=== PATIENT | female | born 1965 | race Hispanic/Latino ===

== ENCOUNTER 2018-03-23 14:46 | Outpatient (CLI) | payer BC | END 2018-03-23 14:47 | disposition home or self-care (01) | LOC: BICMAMMO 14:46 | PROVIDERS: ATTEND Nurse Practitioner Family | DX: Z12.31 Encounter for screening mammogram for malignant neoplasm of breast (principal) | CPT/HCPCS: 77063; 77067 ==

== ENCOUNTER 2019-05-11 15:36 | Outpatient (CLI) | payer BC ==
--- NOTE | 2019-05-11 16:28 | MMO ---
Bilateral MAMMO Bilat Screen [facility]. CLINICAL HISTORY: Patient is 54 years old and is seen for screening. The patient has no family history of breast cancer. The patient has no personal history of cancer. VIEWS: The views performed were: bilateral craniocaudal with tomosynthesis and bilateral mediolateral oblique with tomosynthesis. FILMS COMPARED: The present examination has been compared to prior imaging studies performed at [facility] on 12/22/2013, 12/30/2014, 01/03/2016 and 03/23/2018. This study has been interpreted with the assistance of computer-aided detection. MAMMOGRAM FINDINGS: There are scattered fibroglandular densities. There are stable benign appearing calcifications seen in both breasts. There are no suspicious masses, calcifications or areas of architectural distortion. There are no suspicious masses, suspicious calcifications, or new areas of architectural distortion. IMPRESSION: THERE IS NO MAMMOGRAPHIC EVIDENCE OF MALIGNANCY. A ROUTINE FOLLOW-UP MAMMOGRAM IN 1 YEAR IS RECOMMENDED. THE RESULTS OF THIS EXAM WERE SENT TO THE PATIENT. ACR BI-RADS Category 2 - Benign finding MAMMOGRAPHY NOTE: 1. A negative mammogram report should not delay a biopsy if a dominant of clinically suspicious mass is present. 2. Approximately 10% to 15% of breast cancers are not detected by mammography. 3. Adenosis and dense breasts may obscure an underlying neoplasm. Reported by: LISA SWANN MD Electonically Signed: [id number]
== END 2019-05-11 15:37 | disposition home or self-care (01) ==
LOC: BICMAMMO 15:36
PROVIDERS: ATTEND Nurse Practitioner Family
DX: Z12.31 Encounter for screening mammogram for malignant neoplasm of breast (principal)
CPT/HCPCS: 77063; 77067

== ENCOUNTER 2019-05-25 09:30 | Outpatient (CLI) | payer BC ==
--- NOTE | 2019-05-25 11:58 | MRI ---
MRI RIGHT HINDFOOT AND MIDFOOT WITH AND WITHOUT IV CONTRAST: Date: 05/25/19 PROVIDED CLINICAL HISTORY: Lateral right midfoot masses. FINDINGS: Areas of palpable concern at the lateral aspect of the midfoot adjacent to the cuboid and lateral for efoot/midfoot junction are marked at the skin by the technologist with vitamin E capsules. There is no mass like signal alteration within the subcutaneous adipose layer, musculature, or osseou s structures in the regions of palpable concern. The anterior extensor, medial flexor, peroneal, and Achilles tendons demonstrate an intact MR appeara nce. The medial and lateral ankle ligaments appear intact. Alignment appears anatomic. Joint spaces a ppear preserved. No regional joint effusion is evident. Plantar calcaneal enthesophyte formation is seen without signal alteration involving the adjacent zhanna caneus or plantar aponeurosis. There is preservation of the normal fat signal intensity within the ta rsal sinus. Degenerative changes are noted at the calcaneal-cuboid joints. Regional marrow signal josh ears otherwise unremarkable. The courses of the regional major neurovascular structures appear unremarkable. IMPRESSION: No signal alteration or mass is evident in the regions of palpable concern to account for the palpabl e findings. POS: OFF
[2019-05-25] MEDS ORDERED: Magnevist 469MG/ML 20 ML VIAL ONE (13:34)
== END 2019-05-25 09:31 | disposition home or self-care (01) ==
LOC: BICMRI 09:30
PROVIDERS: ATTEND Podiatrist
DX: M67.471 Ganglion, right ankle and foot (principal)
CPT/HCPCS: A9579

== ENCOUNTER 2020-05-16 13:28 | Outpatient (CLI) | payer OTHER ==
--- NOTE | 2020-05-16 14:37 | MMO ---
Bilateral MAMMO Bilat Screen [facility]. CLINICAL HISTORY: Patient is 55 years old and is seen for screening. The patient has no family history of breast cancer. The patient has no personal history of cancer. VIEWS: The views performed were: bilateral craniocaudal with tomosynthesis; bilateral mediolateral oblique with tomosynthesis; and right exaggerated craniocaudal. FILMS COMPARED: The present examination has been compared to prior imaging studies performed at [facility] on 12/30/2014, 01/03/2016, 03/23/2018 and 05/11/2019. This study has been interpreted with the assistance of computer-aided detection. MAMMOGRAM FINDINGS: There are scattered fibroglandular densities. Benign calcifications are noted bilaterally. There are no suspicious masses, suspicious calcifications, or new areas of architectural distortion. IMPRESSION: THERE IS NO MAMMOGRAPHIC EVIDENCE OF MALIGNANCY. A ROUTINE FOLLOW-UP MAMMOGRAM IN 1 YEAR IS RECOMMENDED. THE RESULTS OF THIS EXAM WERE SENT TO THE PATIENT. ACR BI-RADS Category 2 - Benign finding MAMMOGRAPHY NOTE: 1. A negative mammogram report should not delay a biopsy if a dominant of clinically suspicious mass is present. 2. Approximately 10% to 15% of breast cancers are not detected by mammography. 3. Adenosis and dense breasts may obscure an underlying neoplasm. Reported by: LISA SIGALA MD Electonically Signed: [id number]
== END 2020-05-16 13:29 | disposition home or self-care (01) ==
LOC: BICMAMMO 13:28
PROVIDERS: ATTEND Nurse Practitioner Family
DX: Z12.31 Encounter for screening mammogram for malignant neoplasm of breast (principal)
CPT/HCPCS: 77063; 77067

== ENCOUNTER 2021-05-29 08:41 | Outpatient (CLI) | payer BC | END 2021-05-29 08:42 | disposition home or self-care (01) | LOC: BICMAMMO 08:41 | PROVIDERS: ATTEND Nurse Practitioner Family | DX: Z12.31 Encounter for screening mammogram for malignant neoplasm of breast (principal) | CPT/HCPCS: 77063; 77067 ==

== ENCOUNTER 2022-07-04 14:14 | Outpatient (CLI) | payer BC | END 2022-07-04 14:15 | disposition home or self-care (01) | LOC: BICMAMMO 14:14 | PROVIDERS: ATTEND Family Medicine | DX: Z12.31 Encounter for screening mammogram for malignant neoplasm of breast (principal) | CPT/HCPCS: 77063; 77067 ==

== ENCOUNTER 2022-11-01 09:47 | Day surgery (SDC) | payer BC ==
[2022-10-31 10:54] VITALS: BMI 29.2
[2022-11-01] MEDS ORDERED: ePHEDrine Sulfate 50 MG/10 ML VIAL ONE (12:21)
[2022-11-01] MEDS ORDERED: PROPOFOL 200 MG/20 ML VIAL ONE (12:21)
[2022-11-01] MEDS ORDERED: Lidocaine 1% PF 5 ML VIAL ONE (12:21)
[2022-11-01] MEDS ORDERED: Phenylephrine 10 MG/ML VIAL ONE (12:21)
== END 2022-11-01 14:21 | disposition home or self-care (01) ==
LOC: SDC 09:47
PROVIDERS: ATTEND Internal Medicine Gastroenterology
PROC: 0DBC8ZX Excision of Ileocecal Valve, Via Natural or Artificial Opening Endoscopic, Diagnostic (ICD-10-PCS; principal; 2022-11-01)
DX: Z12.11 Encounter for screening for malignant neoplasm of colon (principal); D12.0 Benign neoplasm of cecum; K52.9 Noninfective gastroenteritis and colitis, unspecified; K64.8 Other hemorrhoids; R19.5 Other fecal abnormalities; I10 Essential (primary) hypertension; Z79.899 Other long term (current) drug therapy
CPT/HCPCS: 88305; J2370; J2704